=== PATIENT | male | born 1995 | race Caucasian/White ===

== ENCOUNTER 2017-07-04 15:42 | Emergency (ER) | payer MEDICAID, OTHER ==
[2017-07-04 16:02] VITALS: BP 130/63
--- NOTE | 2017-07-04 16:16 | UC ---
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 age 13 still has hardware in foot very painful to bear wt - History of Current Complaint Chief Complaint: UCLowerExtremity Stated Complaint: LEFT FOOT PAIN Time Seen by Provider: 07/04/17 15:56 Hx Obtained From: Patient Onset/Duration: Sudden Onset, Lasting Hours Severity Initially: Severe Severity Currently: Moderate Pain Intensity: 7 Pain Scale Used: 0-10 Numeric Aggravating Factor(s): Standing, Ambulation Able to Bear Weight: Yes - Allergies/Home Medications Allergies/Adverse Reactions: Allergies Allergy/AdvReac Type Severity Reaction Status Date / Time No Known Allergies Allergy Verified 07/04/17 16:02 Home Medications: Home Medications NK [No Home Medications Reported] 07/04/17 [History Confirmed 07/04/17] PMH/Surg Hx/FS Hx/Imm Hx Previously Healthy: Yes - Surgical History Surgical History: Yes Surgery Procedure, Year, and Place: surgery on both feet. fx arm - Family History Known Family History: Positive: Hypertension - Social History Alcohol Use: Occasionally Substance Use Type: Marijuana Smoking Status (MU): Current Every Day Smoker Type: eCigarettes Amount Used/How Often: 5-6 a day at most. Review of Systems Constitutional: Negative Skin: Negative Eyes: Negative ENT: Negative Respiratory: Negative Cardiovascular: Negative Gastrointestinal: Negative Genitourinary: Negative Motor: Negative Neurovascular: Negative Musculoskeletal: Arthralgia Neurological: Negative Psychological: Negative Is Patient Immunocompromised?: No All Other Systems Reviewed And Are Negative: Yes Physical Exam Triage Information Reviewed: Yes Appearance: Well-Appearing, No Pain Distress, Well-Nourished Vital Signs: Initial Vital Signs Temp 98.6 F 07/04/17 15:57 Pulse 66 07/04/17 15:57 Resp 16 07/04/17 15:57 BP 130/63 07/04/17 15:57 Pulse Ox 99 07/04/17 15:57 Eye Exam: Normal Eyes: Positive: Conjunctiva Clear ENT: Positive: Hearing grossly normal. Negative: Nasal congestion, Nasal drainage, Trismus, Muffled voice, Hoarse voice Neck: Positive: Supple, Nontender, No Lymphadenopathy Respiratory: Positive: Lungs clear, Normal breath sounds, No respiratory distress, No accessory muscle use Cardiovascular: Positive: RRR, No Murmur Musculoskeletal: Positive: ROM Intact, Edema @ - sere image Neurological: Positive: Alert Psychological Exam: Normal Skin Exam: Normal Diagnostics - Radiology No standard instances Xray Interpretation: No Acute Changes Radiology Interpretation Completed By: Radiologist Lower Extremity Course/Dx - Differential Dx/Diagnosis Provider Diagnoses: acute pain and swelling dorsum of left midfoot. ? etiology Discharge - Sign-Out/Discharge Documenting (check all that apply): Discharge/Admit/Transfer - Discharge Plan Condition: Stable Disposition: HOME Patient Education Materials: Ganglion Cysts (ED) Forms: *Work Release Referrals: Matt Unger MD [Medical Doctor] - As Soon As Possible Additional Instructions: there was no sign of hardware failure on XR I am unsure of the cause of your acute pain and swelling ? ganglion cyst vs other I suggest ortho follow up - Billing Disposition and Condition Condition: STABLE Disposition: HOME Images Feet (Multiple View): 1 - firm/tender/swollen
--- NOTE | 2017-07-04 16:32 | RAD ---
HISTORY: Pain, dorsum of foot COMPARISONS: None VIEWS: 3, Frontal, lateral, and oblique views of the left foot FINDINGS: BONE DENSITY: Normal. BONES: The patient is status post internal fixation of the medial midfoot. There is also a fixation device of the calcaneus. There is no appreciable hardware failure or osteolysis. JOINTS: There is no arthropathy. ALIGNMENT: There is no dislocation. SOFT TISSUES: Unremarkable. OTHER FINDINGS: None. IMPRESSION: POST SURGICAL CHANGE. NO ACUTE OSSEOUS INJURY. IF SYMPTOMS PERSIST, RECOMMEND REPEAT IMAGING.
== END 2017-07-04 16:45 | disposition home or self-care (01) ==
LOC: UCCORT 15:42
DX: F17.210 Nicotine dependence, cigarettes, uncomplicated (principal); M79.672 Pain in left foot; M79.89 Other specified soft tissue disorders
CPT/HCPCS: 99213; G0463

== ENCOUNTER 2017-07-18 08:58 | Day surgery (SDC) | payer MEDICAID ==
[~2017-07-18 08:58] MED LIST: Buffered Lidocaine 0.9% SYRIN* 5 ML/SYR SYRINGE INTRADERM ONE; Dexamethasone IV* 4 MG/ML 1 ML (4 MG) IV SLOW PU ONE; Famotidine IV* 10 MG/ML 2 ML (20 mg) IV ONE
[2017-07-18] MEDS ORDERED: ceFAZolin 2 GM PREMIX (*) 2 GM/50 ML BAG IVPB ONE (09:33)
[2017-07-18] MEDS ORDERED: Dexamethasone IV* 4 MG/ML 1 ML (4 MG) ONE (09:33)
[2017-07-18] MEDS ORDERED: Famotidine IV* 10 MG/ML 2 ML (20 mg) ONE (09:33)
[2017-07-18] MEDS ORDERED: Midazolam* 1 MG/ML 5 ML VIAL (5 MG) ONE (12:08)
[2017-07-18] MEDS ORDERED: fentaNYL* 50 MCG/ML 2 ML VIAL (100 MCG VIAL) ONE ×2 (12:08→12:27)
[2017-07-18] MEDS ORDERED: Propofol* 10 MG/ML 20 ML BTL IV PUSH ONE (12:08)
[2017-07-18] MEDS ORDERED: Lidocaine 2% PF * 5 ML VIAL ONE (12:08)
[2017-07-18] MEDS ORDERED: Bupivacaine 0.5% SDV PF* 30ML VIAL ONE (12:27)
[2017-07-18] MEDS ORDERED: Succinylcholine* 20 MG/ML 10 ML VIAL ONE (12:49)
[2017-07-18 15:09] VITALS: BP 132/87
--- NOTE | 2017-07-19 13:04 | PN ---
Progress Note - Progress Note Date of Service: 07/19/17 Note: Spoke with Carlos today and has no complaints. Denies fever,chills,rigors,sob or other respiratory symptoms. Doing well without complaints. Kyle Cooney M.D.
== END 2017-07-18 15:11 | disposition home or self-care (01) ==
LOC: OR 08:58
PROVIDERS: ATTEND Orthopaedic Surgery
DX: M19.072 Primary osteoarthritis, left ankle and foot (principal); M21.532 Acquired clawfoot, left foot; Z53.09 Procedure and treatment not carried out because of other contraindication; T88.4XXA Failed or difficult intubation, initial encounter; M77.8 Other enthesopathies, not elsewhere classified; M25.775 Osteophyte, left foot; F17.290 Nicotine dependence, other tobacco product, uncomplicated; F41.9 Anxiety disorder, unspecified
CPT/HCPCS: J0330; J0690; J1100; J2250; J2704; J3010

== ENCOUNTER 2017-07-25 09:46 | Day surgery (SDC) | payer MEDICAID ==
[~2017-07-25 09:46] MED LIST changes: -Dexamethasone IV* 4 MG/ML 1 ML (4 MG) IV SLOW PU ONE; -Famotidine IV* 10 MG/ML 2 ML (20 mg) IV ONE; +Famotidine TAB* 20 MG PO ONE; +Metoclopramide TAB* 10 MG PO ONE; +Sodium Citrate/Citric Acid* 15 ML UDC PO ONE
[2017-07-25] MEDS ORDERED: Metoclopramide TAB* 10 MG ONE (09:52)
[2017-07-25] MEDS ORDERED: Sodium Citrate/Citric Acid* 15 ML UDC ONE (09:52)
[2017-07-25] MEDS ORDERED: Famotidine TAB* 20 MG ONE (09:52)
[2017-07-25] MEDS ORDERED: ceFAZolin 2 GM PREMIX (*) 2 GM/50 ML BAG IVPB ONE (09:52)
[2017-07-25] MEDS ORDERED: fentaNYL* 50 MCG/ML 2 ML VIAL (100 MCG VIAL) ONE ×2 (12:04→13:04)
[2017-07-25] MEDS ORDERED: Midazolam* 1 MG/ML 5 ML VIAL (5 MG) ONE (12:04)
[2017-07-25] MEDS ORDERED: Bupivacaine 0.5% SDV PF* 30ML VIAL ONE (12:14)
[2017-07-25] MEDS ORDERED: Bupivacaine-MPF SPINAL* 7.5 MG/ML - 2ML AMP ONE (12:32)
[2017-07-25] MEDS ORDERED: Lidocaine 2% PF * 5 ML VIAL ONE (12:32)
[2017-07-25] MEDS ORDERED: Propofol* 10 MG/ML 20 ML BTL IV PUSH ONE (12:40)
[2017-07-25] MEDS ORDERED: Naloxone* 0.4 MG/ML 1 ML VIAL IV PRN (12:50)
[2017-07-25] MEDS ORDERED: DiMENhydriNATE IV* 50 MG/ML VIAL IV PUSH PRN (12:50)
[2017-07-25] MEDS ORDERED: Ketorolac INJ* 30 MG/ML 1 ML VIAL IV PRN (12:50)
[2017-07-25] MEDS ORDERED: fentaNYL* 50 MCG/ML 2 ML VIAL (100 MCG VIAL) IV PRN (12:50)
[2017-07-25] MEDS ORDERED: Acetaminophen TAB* 325 MG PO PRN (12:50)
[2017-07-25] MEDS ORDERED: Acetaminophen TAB* 325 MG ONE (15:10)
[2017-07-25] MEDS ORDERED: oxyCODONE TAB* 5 MG TAB ONE (15:10)
[2017-07-25] MEDS: oxyCODONE TAB* 5 MG TAB PO PRN ×2 (15:11→15:12)
[2017-07-25 18:31] VITALS: BP 117/58
--- NOTE | 2017-07-26 10:02 | OP ---
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 OPERATIVE PROCEDURE: Removal of osteophyte, left midfoot and PIP resection arthroplasty, two, three, and four, left foot. DESCRIPTION OF PROCEDURE: The patient was taken to the operating room, where a longitudinal incision was made just medial to the first TMT joint. The osteophyte over the dorsum of the first TMT was exposed and resected with a microsagittal saw. This wound was then irrigated and closed with 2-0 Vicryl and 3-0 nylon. We then made transverse incisions over the second, third, and fourth PIP joints , condyles were resected after releasing the collateral ligaments, and then prepared for the MiToe prosthetics. At the second toe, we placed a 2.4 x 16 mm implant; third and fourth, a 2.0 x 13 mm implant. Good fixation and alignment was obtained. We then irrigated closing the dorsal incisions with interrupted 3- 0 nylon sutures. The second toe had a contracture of the DIP joints, so percutaneous FDL release was performed at the DIP level plantarward. This was closed with interrupted nylon as well. Compression dressing was then applied. [id number]/[facility] #: [id number] MTDD
== END 2017-07-25 18:33 | disposition home or self-care (01) ==
LOC: OR 09:46
PROVIDERS: ATTEND Orthopaedic Surgery
DX: M19.072 Primary osteoarthritis, left ankle and foot (principal); M21.532 Acquired clawfoot, left foot
CPT/HCPCS: 88304; 88311; A9270-GY; C1713; J0690; J2250; J2704; J3010

== ENCOUNTER 2017-09-24 13:11 | Emergency (ER) | payer MEDICAID, OTHER ==
[2017-09-24 13:28] VITALS: BP 135/72
--- NOTE | 2017-09-24 14:05 | UC ---
Lower Extremity/Ankle HPI - HPI Summary HPI Summary: The patient is a 22-year-old male who reports here to have his severe left leg pain evaluated. 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 Back in July of this year he had a surgery performed on his left foot. He states that he had a bone spur removed as well as a repair of 3 hammertoes. He states his postoperative course while well. In the past week he has returned to full duty at work. He states that he has had some mild soreness of his left foot after being up on it all day. Yesterday when he got home from work his throat was a little achy and he noted some mild swelling. Today when he woke up he had marked edema and around his left ankle. He has severe pain from his mid rose down to his foot. He has numbness of his toes which He states is a chronic issue.he has severe pain at rest. Pain worsens with weightbearing. - History of Current Complaint Chief Complaint: UCLowerExtremity Stated Complaint: S/P FOOT SURGERY LEFT FOOT COMPLAINT Time Seen by Provider: 09/24/17 13:28 Hx Obtained From: Patient Onset/Duration: Gradual Onset, Lasting Hours Severity Initially: Severe Severity Currently: Severe Pain Intensity: 7 Pain Scale Used: 0-10 Numeric Aggravating Factor(s): Standing, Ambulation Alleviating Factor(s): Rest Able to Bear Weight: Yes Feet (Multiple View): 1 - severe pain and hypersensitivity to light touch from this line down. good cap refill . Bounding DP and PT pulses - Allergies/Home Medications Allergies/Adverse Reactions: Allergies Allergy/AdvReac Type Severity Reaction Status Date / Time No Known Allergies Allergy Verified 07/25/17 10:07 PMH/Surg Hx/FS Hx/Imm Hx Previously Healthy: Yes - Surgical History Surgical History: Yes Surgery Procedure, Year, and Place: surgery on both feet-RECONSTRUCTION SURGERY FOR BOTH [id number] YRS AGO. REPAIR OF RIGHT ARM - SURGERY TO [facility] PINS IN LEFT TOES 2017 - Family History Known Family History: Positive: Hypertension - Social History Alcohol Use: Occasionally Substance Use Type: Marijuana Substance Use Comment - Amount & Last Used: OCCASIONALLY Smoking Status (MU): Current Every Day Smoker Type: eCigarettluz Amount Used/How Often: VAPING- SMOKER 1.5 YEARS Have You Smoked in the Last Year: Yes Review of Systems Constitutional: Negative Skin: Negative Eyes: Negative ENT: Negative Respiratory: Negative Cardiovascular: Negative Gastrointestinal: Negative Genitourinary: Negative Motor: Negative Neurovascular: Negative Musculoskeletal: Arthralgia, Myalgia Neurological: Negative Psychological: Negative Is Patient Immunocompromised?: No All Other Systems Reviewed And Are Negative: Yes Physical Exam Triage Information Reviewed: Yes Appearance: Well-Appearing, Well-Nourished, Pain Distress, Thin Vital Signs: Initial Vital Signs Temp 97.7 F 09/24/17 13:23 Pulse 75 09/24/17 13:23 Resp 16 09/24/17 13:23 BP 135/72 09/24/17 13:23 Pulse Ox 99 09/24/17 13:23 Vital Signs Reviewed: Yes Eyes: Positive: Conjunctiva Clear ENT: Positive: Hearing grossly normal. Negative: Nasal congestion, Nasal drainage, Trismus, Muffled voice, Hoarse voice Neck: Positive: Supple, Nontender Respiratory: Positive: Lungs clear, Normal breath sounds Cardiovascular: Positive: RRR, No Murmur Musculoskeletal: Positive: Other: Neurological: Positive: Other: - toes and dorsum of foot cool to touch/ hypersensitive to even light touch/no edema of calf/rose/ankle, slight edema dorsum of foot. normal pulses and good cap refill Psychological Exam: Normal Skin Exam: Normal Lower Extremity Course/Dx - Differential Dx/Diagnosis Provider Diagnoses: left foot pain (suspect complex regional pain syndrome) Discharge - Sign-Out/Discharge Documenting (check all that apply): Patient Departure - Discharge Plan Condition: Stable Disposition: HOME Prescriptions: Ibuprofen TAB* [Motrin TAB*] 600 mg PO QID PRN #40 tab PRN Reason: Pain oxyCODONE/Acetamin 5/325 MG* [Percocet 5/325 TAB*] 1 tab PO Q4H PRN #12 tab MDD 4 PRN Reason: Pain Patient Education Materials: Complex Regional Pain Syndrome (DC) Forms: *Work Release Referrals: Maximilian Love MD [Medical Doctor] - 2 Days Additional Instructions: I suspect you have complex regional pain syndrome use your crutches if need be see your orthopedist [facility]KE TO ER FOR NEW OR WORSENING SYMPTOMS - Billing Disposition and Condition Condition: STABLE Disposition: Home
== END 2017-09-24 14:18 | disposition home or self-care (01) ==
LOC: UCCORT 13:11
DX: M79.672 Pain in left foot (principal); Z87.898 Personal history of other specified conditions; Z98.890 Other specified postprocedural states; F17.290 Nicotine dependence, other tobacco product, uncomplicated
CPT/HCPCS: 99212; G0463

== ENCOUNTER 2017-11-28 14:59 | Emergency (ER) | payer MEDICAID, OTHER ==
[2017-11-28 16:38] VITALS: BP 139/89
--- NOTE | 2017-11-28 16:53 | UC ---
Lower Extremity/Ankle HPI - HPI Summary HPI Summary: 22 y/o male presents to the urgent care c/o left foot pain for the past 2 days. 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 He had surgery repair w/ orthopedic Dr Godinez at the end of 07/2017. He placed some pins and sheved down the spur. He was cleared form his office at the end of August/2017. On 09/2017 he has seen here because he developed some pain which resolved w/ pain medication. He has been well until 2 days ago where pain returned. Pain is sharp 5/10 associated w/ numbness in the toes w/ walking or standing up. He has not taking any medications, and denies swelling, recent injury, calf pain, SOB, chest pain, abdominal pain, N/V/D. Pt is UTD w/ all vaccines for his age. 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 However he denies cough, fever, wheezing, SOB, - History of Current Complaint Chief Complaint: UCLowerExtremity Stated Complaint: LEFT FOOT COMPLAINT Time Seen by Provider: 11/28/17 16:50 Hx Obtained From: Patient Onset/Duration: Gradual Onset, Lasting Days - 2 days, Still Present, Worse Since - today Severity Initially: Mild Severity Currently: Moderate Pain Intensity: 5 Pain Scale Used: 0-10 Numeric Aggravating Factor(s): Standing, Ambulation Alleviating Factor(s): Rest, Elevation Able to Bear Weight: Yes - Risk Factors Gout Risk Factors: Negative DVT Risk Factors: Negative Septic Arthritis Risk Factor: Negative - Allergies/Home Medications Allergies/Adverse Reactions: Allergies Allergy/AdvReac Type Severity Reaction Status Date / Time No Known Allergies Allergy Verified 11/28/17 16:38 PMH/Surg Hx/FS Hx/Imm Hx Previously Healthy: Yes - Pt denies PMHX - Surgical History Surgical History: Yes Surgery Procedure, Year, and Place: surgery on both feet-RECONSTRUCTION SURGERY FOR BOTH [id number] YRS AGO. 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 Lives: Dormitory/Roommates Alcohol Use: Occasionally Alcohol Amount: weekends Substance Use Type: Marijuana Substance Use Comment - Amount & Last Used: OCCASIONALLY Smoking Status (MU): Current Some Day Smoker Type: eCigarettes Amount Used/How Often: VAPING- SMOKER 1.5 YEARS Have You Smoked in the Last Year: Yes - Immunization History Vaccination Up to Date: Yes Review of Systems Constitutional: Negative Skin: Negative Eyes: Negative ENT: Negative Respiratory: Negative Cardiovascular: Negative Gastrointestinal: Negative Genitourinary: Negative Motor: Negative Neurovascular: Negative Musculoskeletal: Decreased ROM - left 2nd , 3rd and 4th toes, Other: - left foot pain s/p surgery Neurological: Numbness - on 2nd, 3rd and 4th left toe Psychological: Negative Is Patient Immunocompromised?: No All Other Systems Reviewed And Are Negative: Yes Physical Exam - Summary Physical Exam Summary: Vital Signs Reviewed: Yes General : well developed, well nourished male adolescent w/o any apparent distress Eyes: Positive: Conjunctiva Clear - PERRLA, EOMI ENT: Positive: Normal ENT inspection, Hearing grossly normal, Pharynx normal, TMs normal Neck: Positive: Supple, Nontender, No Lymphadenopathy Respiratory: Positive: Chest non-tender, Lungs clear, Normal breath sounds, No respiratory distress Cardiovascular: Positive: RRR, No Murmur, Pulses Normal Abdomen Description: Positive: Nontender, No Organomegaly, Soft. Negative: CVA Tenderness (R), CVA Tenderness (L) Bowel Sounds: Positive: Present Musculoskeletal: Positive: Strength Intact, ROM Intact, No Edema,Left Foot/Toes : Pt is able to bear weight but ambulate with mild limping. No surface trauma, ecchymosis, erythema, lesions, ulcers or break in skin integrity.Positive scars over the dorsal first metatarsal and 2nd, 3rd and 4th toes scars w/o any sign of infection, swelling or discharge. Point tenderness over the scars on palpation at at the base of these toes respectively.. The L foot is without obvious asymmetry or deformity when compared to the R foot. No bony step-off, decrease ROM of theses toes due to pain. no tenderness of hindfoot, Decrease plantar/dorsiflexion, inversion/eversion due to pain. Distal motor and neurovascular status are intact. Neurological Exam: Normal Psychological Exam: Normal Skin Exam: Normal Triage Information Reviewed: Yes Vital Signs: Initial Vital Signs Temp 97.8 F 11/28/17 16:29 Pulse 69 11/28/17 16:29 Resp 14 11/28/17 16:29 BP 139/89 11/28/17 16:29 Pulse Ox 100 11/28/17 16:29 Lower Extremity Course/Dx - Course Course Of Treatment: 22 y/o male presents to the urgent care c/o left foot pain for the past 2 days. 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 He had surgery repair w/ orthopedic Dr Godinez at the end of 07/2017. He placed some pins and sheved down the spur. He was cleared form his office at the end of August/2017. On 09/2017 he has seen here because he developed some pain which resolved w/ pain medication. He has been well until 2 days ago where pain returned. Pain is sharp 5/10 associated w/ numbness in the toes w/ walking or standing up. He has not taking any medications, and denies swelling, calf pain, SOB, chest pain, abdominal pain , N/V/D. Pt is UTD w/ all vaccines for his age. 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 However he denies cough, fever, wheezing, SOB. Hx obtained.Pt Probably w/ metatarsalgia and regional pain syndrome s/p surgery. pt's foot immobilized w/ dionisio bandage, Given a toradol Im inj and Famotidine PO by nurse to alleviate symptoms. Pt tolerated well IM inj and pain decrease. Pt advised to use his CAM boot and crutches he has at home to avoid weight bearing until he sees DR Godinez for further management. Referral given W/ Dr Godinez. Pt R ibuprofen PO and strongly advised to f/u w/ DR godinez. Pt porbably also developing GERD. Pt educated on diet and Rx Omeprazole PO to alleviate symptoms. Pt understood and agreed with D/C instructions - Differential Dx/Diagnosis Differential Diagnosis/HQI/PQRI: Contusion, Fracture (Closed), Sprain, Strain, Tendonitis Provider Diagnoses: 1- Acute left foot pain s/p surgery. 2- GERD Discharge - Sign-Out/Discharge Documenting (check all that apply): Patient Departure - D/c home All imaging exams completed and their final reports reviewed: No Studies - Discharge Plan Condition: Stable Disposition: HOME Prescriptions: Ibuprofen TAB* [Motrin TAB* 600 MG] 600 mg PO Q6H PRN #30 tab PRN Reason: Pain Omeprazole CAP* [Prilosec CAP* 20 MG] 20 mg PO DAILY #30 cap. Patient Education Materials: Metatarsalgia (DC), Gastroesophageal Reflux Disease (ED) Forms: *Work Release Referrals: [facility] [place] [facility] [Outside] - 3 Days Maximilian Godinez MD [Medical Doctor] - 1 Day Dennis Kerns MD [Medical Doctor] - 1 Week Additional Instructions: 1-Please take Ibuprofen PO q6-8hrs after meals as directed to alleviate pain. Start tomorrow 2-Please keep your foot immobilized with the Dionisio bandage. Wear the CAM boot at home and the crutches to avoid weight bearing until you see your Orthopedic DR Godinez. Avoid strenuous exercise or standing for long periods of time 3- Please f/u with your Orthopedic DR Godinez in 1-2 days for further evaluation and treatment. 4-Take Omeprazole PO to alleviate GERD and if not improvement of symptoms please f/u w/ GI DR Harvey for furthe evaluation and treatment. Avoid spicy food, chocolates, citric fruits, tomato sauce,smoking etc. Avoid long periods of time w/o eating. increase fluid and eat soft meals until symptoms improve. - Billing Disposition and Condition Condition: STABLE Disposition: Home
[2017-11-28] MEDS ORDERED: Ketorolac INJ* 30 MG/ML 1 ML VIAL IM ONE (17:19)
[2017-11-28] MEDS ORDERED: Famotidine TAB* 20 MG PO ONE (17:21)
== END 2017-11-28 17:46 | disposition home or self-care (01) ==
LOC: UCCORT 14:59
DX: M79.672 Pain in left foot (principal); Z98.890 Other specified postprocedural states; Z72.0 Tobacco use; K21.9 Gastro-esophageal reflux disease without esophagitis
CPT/HCPCS: 99212; A9270-GY; G0463; J1885

== ENCOUNTER 2019-02-24 16:37 | Emergency (ER) | payer SELFPAY ==
[2019-02-24 16:57] VITALS: BP 137/65
[2019-02-24] MEDS ORDERED: Ondansetron ODT TAB* 4 MG PO ONE (16:59)
[2019-02-24] MEDS ORDERED: Ibuprofen TAB* 400 MG PO ONE (16:59)
--- NOTE | 2019-02-24 17:00 | UC ---
Dental HPI - HPI Summary HPI Summary: 23 y/o male presents to the urgent care c/o Right upper dental pain for several weeks. Pt saw a dentist at [facility] 2 weeks ago and was told he needed a root canal procedure. He was Rx antibiotic which he can't recall the name. He Completed course with improvement. However, dental pain came back 4 days ago. This morning he had 3 episodes of vomiting due to pain. He has been taking Tylenol PO to alleviate symptoms w/o any improvement. Pt denies fever, trismus, SIMON, dizziness, SOB, chest pain, abdominal pain, diarrhea, sore throat, rash. - History of Current Complaint Chief Complaint: UCDentalProblem Stated Complaint: DENTAL PAIN Time Seen by Provider: 02/24/19 16:57 Hx Obtained From: Patient Onset/Duration: Gradual Onset, Lasting Days - 4 days, Still Present, Worse Since - today Severity: Moderate Pain Intensity: 8 Pain Scale Used: 0-10 Numeric Aggravating Factor(s): Chewing Alleviating Factor(s): OTC Meds - Tylenol PO Related History: Swelling, Other - Pt saw dentist 2 weeks ago and told he needs a root canal which he had not done it - Allergies/Home Medications Allergies/Adverse Reactions: Allergies Allergy/AdvReac Type Severity Reaction Status Date / Time No Known Allergies Allergy Verified 02/24/19 16:56 PMH/Surg Hx/FS Hx/Imm Hx Previously Healthy: Yes - Pt denies PMHX - Surgical History Surgical History: Yes Surgery Procedure, Year, and Place: surgery on both feet-RECONSTRUCTION SURGERY FOR BOTH [id number] YRS AGO. REPAIR OF RIGHT ARM - SURGERY TO RESET- [place]. PINS IN LEFT TOES/shave of bone spur 2017 - Family History Known Family History: Positive: Hypertension - Social History Occupation: Student Lives: With Family Alcohol Use: Occasionally Alcohol Amount: weekends Substance Use Type: Marijuana Substance Use Comment - Amount & Last Used: OCCASIONALLY Smoking Status (MU): Current Some Day Smoker Type: eCigarettes Amount Used/How Often: VAPING- SMOKER 1.5 YEARS Have You Smoked in the Last Year: Yes - Immunization History Vaccination Up to Date: Yes Review of Systems All Other Systems Reviewed And Are Negative: Yes Constitutional: Positive: Negative Skin: Positive: Negative Eyes: Positive: Negative ENT: Positive: Dental Pain - RT upper molar sollen and decay w/ pain Respiratory: Positive: Negative Cardiovascular: Positive: Negative Gastrointestinal: Positive: Vomiting - 3 episodes today, Nausea Genitourinary: Positive: Negative Motor: Positive: Negative Neurovascular: Positive: Negative Musculoskeletal: Positive: Negative Neurological: Positive: Negative Psychological: Positive: Negative Is Patient Immunocompromised?: No Physical Exam - Summary Physical Exam Summary: Vital Signs Reviewed: Yes General: Well-Appearing, Well-Nourished male sitting in the examining table w/o any respiratory or pain distress Eyes: Positive: Conjunctiva Clear - PERRLA, EOMI, ENT: Positive: Normal ENT inspection, Hearing grossly normal, Pharynx normal, TMs normal - B/L external ear canals clear,. Negative: Tonsillar swelling, Tonsillar exudate, Trismus Dental: Positive: Gross Decay/Caries on molars #2 w/ gingival swelling and erythema, tender to percussion. involves tissue surrounding theses molars, w/ positive anterior Cervical Lymphadenopathy. Neck: Positive: Supple Respiratory: Positive: Chest non-tender, Lungs clear, Normal breath sounds, No respiratory distress Cardiovascular: Positive: RRR, No Murmur, Pulses Normal, Brisk Capillary Refill Abdomen Description: Positive: Nontender, No Organomegaly, Soft. Negative: CVA Tenderness (R), CVA Tenderness (L) Bowel Sounds: Positive: Present Musculoskeletal: Positive: Strength Intact, ROM Intact, No Edema Neurological Exam: Normal Psychological Exam: Normal Skin Exam: Normal Triage Information Reviewed: Yes Vital Signs: Initial Vital Signs Temp 97.6 F 02/24/19 16:53 Pulse 85 02/24/19 16:53 Resp 18 02/24/19 16:53 BP 137/65 02/24/19 16:53 Pulse Ox 98 02/24/19 16:53 Dental Complaint Course/Dx - Course Course Of Treatment: 23 y/o male presents to the urgent care c/o Right upper dental pain for several weeks. Pt saw a dentist at [facility] 2 weeks ago and was told he needed a root canal procedure. He was Rx antibiotic which he can't recall the name. He Completed course with improvement. However, dental pain came back 4 days ago. This morning he had 3 episodes of vomiting due to pain. He has been taking Tylenol PO to alleviate symptoms w/o any improvement. Pt denies fever, trismus, SIMON, dizziness, SOB, chest pain, abdominal pain, diarrhea, sore throat, rash. Hx obtained. Pt is hemodynamically stable, A&OX3. VS:WNL, Pt with dental abscess around molar #2 w/ gross decay on examination. Pt w/ 3 episodes of vomiting today. Pt given Zofran PO, Ibuprofen PO and viscous Lidocaine at the clinic to alleviate symptoms by the nurse. Pt tolerated well medication and felt better. Pt Rx Amoxicillin PO and Zofran PO and Viscous Lidocaine as directed below. Pt strongly advised to f/u with Dentist as soon as possible for further evaluation and treatment. D/C instructions explained. Pt understood and agreed with plan of care. - Differential Dx/Diagnosis Differential Diagnosis/Dx: Dental Abscess, Dental Caries, Fractured Tooth, Odontogenic Pain, Peridontic Disease, Peritonsillar Abcess Provider Diagnosis: Dental abscess, Vomiting Discharge ED - Sign-Out/Discharge Documenting (check all that apply): Patient Departure - D/c home All imaging exams completed and their final reports reviewed: No Studies - Discharge Plan Condition: Stable Disposition: HOME Prescriptions: Amoxicillin PO (*) [Amoxicillin 500 MG CAP*] 500 mg PO TID #30 cap Lidocaine 2% VISCOUS* [Xylocaine 2% Viscous*] 15 ml SWISH SPIT Q6H PRN #1 btl PRN Reason: dental pain Ondansetron ODT TAB* [Zofran 4 MG Odt TAB*] 4 mg PO Q8H PRN #9 tab.odt PRN Reason: Vomiting Patient Education Materials: Dental Abscess (ED) Referrals: [facility] [[facility]] - 2 Days Additional Instructions: 1-Please take full course of antibiotics to avoid resistance. Take yogurt w/ probiotics or culturelle to protect your GI system 2- Take Ibuprofen PO 800mg q6-8hrs prns after meals and you may alternate w/ Tylenol PO to alleviate pain and swelling. also use the Viscous LIdocaine and recommended to alleviate dental pain 3- F/u with your Dentist or Dental List provided as soon as possible for further treatment. 4- Take Zofran PO a prn as directed to alleviate vomiting. Increase hydration and eat soft meals, rest and avoid strenuous exercise. If symptoms worsens please go immediately to the ER for further management 4- If symptoms do not improve or worsen please return to the urgent care or f/u with your PCP in 3 days for further evaluation and treatment - Billing Disposition and Condition Condition: STABLE Disposition: Home
[2019-02-24] MEDS ORDERED: Lidocaine 2% VISCOUS* 15 ML UDC SWISH SPIT ONE (17:09)
== END 2019-02-24 17:43 | disposition home or self-care (01) ==
LOC: UCCORT 16:37
DX: K04.7 Periapical abscess without sinus (principal); R11.10 Vomiting, unspecified; F17.290 Nicotine dependence, other tobacco product, uncomplicated
CPT/HCPCS: 99212; A9270-GY; G0463

== ENCOUNTER 2019-03-26 17:55 | Emergency (ER) | payer SELFPAY | END 2019-03-26 18:28 | disposition left against medical advice (07) | LOC: UCCORT 17:55 | DX: Z53.21 Procedure and treatment not carried out due to patient leaving prior to being seen by health care provider (principal) ==